=== PATIENT | male | born 1960 | race Caucasian/White ===

== ENCOUNTER 2016-07-19 09:54 | Day surgery (SDC) | payer OTHER ==
[~2016-07-19] VITALS: Ht 185.4 cm; Wt 123.8 kg
[2016-07-19] MEDS ORDERED: LEVO25TA59 PO (10:23)
[2016-07-19] MEDS ORDERED: METO-448 PO (10:23)
[2016-07-19] MEDS ORDERED: NIFE90TA PO (10:23)
[2016-07-19 10:25] VITALS: Ht 185.4 cm; Wt 123.8 kg
[2016-07-19 10:44] VITALS: BP 139/80; PULSE 59; RESP 18
[2016-07-19] MEDS ORDERED: MIDAZOLAM 1 MG/ML 2 ML INJ ONE ×2 (11:35)
[2016-07-19] MEDS ORDERED: FENTAnyl 50 MCG/ML VIAL ONE (11:35)
--- NOTE | 2016-07-20 01:28 | GILP ---
DATE OF PROCEDURE: NAME OF PROCEDURES: Colonoscopy, polypectomy, and biopsy. PREOPERATIVE DIAGNOSIS: The patient presenting with history of no significant problems. This is a screening colonoscopy to rule out colon polyps. POSTOPERATIVE DIAGNOSIS: Three polyps noted as described below. DESCRIPTION OF PROCEDURE: After informed written consent was obtained, the patient was asked to lie on the left lateral side. Versed 3 mg and 50 mcg of fentanyl was given as intravenous anesthesia. When the patient became somnolent, the Olympus video colonoscope was introduced into the rectum and scope was advanced all the way to the cecum. At about 8 and 10 cm from the anus, there is evidence of 2 polyps noted, one is a 3 mm, the other one is also 3 mm in diameter. Both of these polyps were removed with a cold biopsy forceps and sent for histopathology. At about 20 cm from the anus, ther e is evidence of a 1 cm lobulated polyp was noted. Adjacent to this area, tattooing was performed a nd, by using the hot snare, polypectomy of this polyp was done. This is located at 20 cm from the a nus. Rest of the colon was examined up to the cecum, which appeared perfectly normal. On the way o ut, no additional abnormalities detected and no hemorrhoids were noted and the procedure was termina jacquelyn. PLAN: Recommend wait for the pathology report. Dictated By: ARLETTE RODRIGUEZ/CHELSEA Conf#: [id number] DID#: [id number] CC: ARLETTE VEGA MD; Sarah Rodas;*[facility]*
== END 2016-07-19 12:14 | disposition home or self-care (01) ==
LOC: GIL 09:54
PROVIDERS: ATTEND Internal Medicine Gastroenterology
DX: Z12.11 Encounter for screening for malignant neoplasm of colon (principal); K63.5 Polyp of colon; I12.9 Hypertensive chronic kidney disease with stage 1 through stage 4 chronic kidney disease, or unspecified chronic kidney disease; N18.9 Chronic kidney disease, unspecified
CPT/HCPCS: 45380; 88305; J2250; J3010; Z7610

== ENCOUNTER 2018-09-27 06:17 | Day surgery (SDC) | payer OTHER ==
[~2018-09-27] VITALS: Ht 182.9 cm; Wt 119.3 kg
[~2018-09-27 06:17] MED LIST: LEVO25TA PO; METO-448 PO; NIFE90TA PO
[2018-09-27] MEDS ORDERED: ASA81 (07:38)
[2018-09-27] MEDS ORDERED: PROZAC (07:38)
[2018-09-27] MEDS ORDERED: FLUOXETINE (07:38)
[2018-09-27] MEDS ORDERED: ALBUTEROL SULFATE (07:38)
[2018-09-27] MEDS ORDERED: WELLBUTRIN (07:38)
[2018-09-27 08:28] VITALS: BP 155/82; PULSE 75; RESP 16
--- NOTE | 2018-09-27 08:54 | PREAC ---
Date/Time of Note Date/Time of Note DATE: 09/27/18 TIME: 08:52 Anesthesia Eval and Record Evaluation Time Pre-Procedure Interview DATE: 09/27/18 TIME: 08:52 Age 58 Sex male NPO: 8 hrs Preoperative diagnosis Colon Screening Planned procedure Colonoscopy Past Medical History Past Medical History: Includes Cardio: HTN Endo: Hypothyroid Pulm: Smoking Hx, COPD, Sleep Apnea, Home CPAP Psych: Depression Surgery & Anesthesia Issues No known issue Meds Anticoagulation: No Beta Cortez within 24 hr: No Reason Beta Cortez not given: Pt. not on B-Cortez Reported Medications [Fluoxetine] No Conflict Check 09/27/18 [Wellbutrin] No Conflict Check 09/27/18 [Prozac] No Conflict Check 09/27/18 [Albuterol Sulfate] No Conflict Check 09/27/18 [Asa81] No Conflict Check 09/27/18 Nifedipine (Procardia Xl) 90 Mg Tab.er.24, 90 MG PO, TAB 07/19/16 Metoprolol Tartrate* (Lopressor*) 25 Mg Tab, 25 MG PO BID, #60 TAB 07/19/16 Levothyroxine Sodium* (Synthroid*) 25 Mcg Tablet, 25 MCG PO BEFORE BREAKFAST, #30 TAB 07/19/16 Meds reviewed: Yes Allergies Coded Allergies: No Known Allergy (Unverified , 09/27/18) Allergies Reviewed: Yes Labs/Studies Labs Reviewed: Reviewed by anesthesiologist test: N/A Studies: ECG Pre-procedure Exam Last vitals Vital Signs Date Temp Pulse Resp B/P (MAP) Pulse Ox O2 O2 Flow FiO2 Time Delivery Rate 09/27/18 75 16 155/82 97 Room Air 08:28 (106) Airway: Adequate mouth opening, Adequate thyromental dist Mallampati: Mallampati II Teeth: Normal Lung: Normal Heart: Normal ASA Physical Status ASA physical status: 3 Emergency: None Planned Anesthetic General/MAC: MAC Planned Pain Management Parenteral pain med Pre-operative Attestations Prior to commencing anesthesia and surgery, the patient was re-evaluated, there was verification of: *The patient's identity *The results of appropriate recent lab work and preoperative vital signs *The above evaluation not changing prior to induction *Anesthetic plan, risk benefits, alternative and complications discussed with patient/family; questions answered; patient/family understands, accepts and wishes to proceed. BRENT MONTOYA MD Sep 27, 2018 08:54
[2018-09-27] MEDS ORDERED: LIDOCAINE 2% (SDV) 5 ML INJ ONE (08:56)
[2018-09-27] MEDS ORDERED: PROPOFOL 60 ML ONE (08:56)
[2018-09-27] MEDS ORDERED: PROPOFOL 20 ML ONE ×2 (09:51)
--- NOTE | 2018-09-27 10:12 | PAC ---
Date/Time of Note Date/Time of Note DATE: 09/27/18 TIME: 10:11 Post-Anesthesia Notes Post-Anesthesia Note Last documented vital signs Vital Signs Date Temp Pulse Resp B/P (MAP) Pulse Ox O2 O2 Flow FiO2 Time Delivery Rate 09/27/18 75 16 155/82 97 Room Air 08:28 (106) Activity: WNL Respiratory function: WNL Cardiovascular function: WNL Mental status: Baseline Pain reasonably controlled: Yes Hydration appropriate: Yes Nausea/Vomiting absent: Yes Comments BP:147/67, P:88, Spo2:100%, T:98,6 BRENT MONTOYA MD Sep 27, 2018 10:12
[2018-09-27 10:36] VITALS: BP 155/99; PULSE 63; RESP 16
== END 2018-09-27 12:47 | disposition home or self-care (01) ==
LOC: GIL 06:17
PROVIDERS: ATTEND Internal Medicine Gastroenterology
DX: Z12.11 Encounter for screening for malignant neoplasm of colon (principal); D12.5 Benign neoplasm of sigmoid colon; D12.0 Benign neoplasm of cecum; I10 Essential (primary) hypertension; E03.9 Hypothyroidism, unspecified; J44.9 Chronic obstructive pulmonary disease, unspecified
CPT/HCPCS: 45380; 88305; Z7610